=== PATIENT | female | born 1990 | race Caucasian/White ===

== ENCOUNTER 2017-02-14 16:36 | Emergency (ER) | payer BC, OTHER ==
[~2017-02-14] VITALS: Ht 167.6 cm; Wt 82.1 kg
[~2017-02-14 16:36] MED LIST: ONDA4TAB7 SL
[2017-02-14 16:45] VITALS: TEMP 36.9; Ht 167.6 cm; Wt 82.1 kg
[2017-02-14 17:13] LABS: MANUAL MICROSCOPIC REQUIRED? NO; REVIEW REQ? NO; URINE APPEARANCE CLOUDY (CLEAR); URINE BILIRUBIN NEG (NEG); URINE COLOR DK YELLOW; URINE EPITHELIAL CELL AUTO >30 /lpf (0-5); URINE NITRITE NEG (NEG); URINE PH 6.5 (4.5-7.5); URINE SPECIFIC GRAVITY 1.027 (1.000-1.030); UROBILINOGEN NEG (NEG); ZZUR CULT IF INDIC CLEAN CATCH YES
[2017-02-14 17:25] LABS: BASO % 0.5 %; BASO ABS # 0.03 K/uL (0-0.2); COMPLETE YES; EOS % 1.3 %; HEMATOCRIT 39.7 % (37-47); IG% 0.2 %; LYMPH % 31.6 %; LYMPH ABS # 1.95 K/uL (1.2-3.4); MEAN CELL VOLUME 92.8 fL (80-100); MEAN CORPUSCULAR HEMOGLOBIN 31.8 pg (25-34); MEAN CORPUSCULAR HGB CONC 34.3 g/dl (32-36); MEAN PLATELET VOLUME 11.2 fL (7.4-10.4); MONO % 7.1 %; NEUT % 59.3 %; PLATELET COUNT 267 K/uL (130-400); RED BLOOD COUNT 4.28 M/uL (4.2-5.4); WHITE BLOOD COUNT 6.18 K/uL (4.8-10.8)
[2017-02-14] MEDS ORDERED: CLR10 PO (17:31)
[2017-02-14] MEDS ORDERED: POLY335025 PO (17:34)
[2017-02-14 17:44] LABS: BUN/CREATININE RATIO 12.5 (10-20); CALCIUM 8.7 mg/dl (8.5-10.1); CREATININE 0.8 mg/dl (0.60-1.20); POTASSIUM 3.8 mmol/L (3.5-5.1)
--- NOTE | 2017-02-14 17:50 | DIAGNOSTIC IMAGING REPORT ---
ABDOMEN 2VIEW W/PA CHEST RTN CLINICAL HISTORY: no bmp x 12 days pain COMPARISON STUDY: No previous studies for comparison. FINDINGS: The soft tissues, psoas shadows, renal outlines and intestinal gas pattern appear normal. There is no evidence for bowel obstruction. There is no evidence for free intraperitoneal air. No abnormal abdominal calcifications are seen. A frontal view of the chest was performed and is unremarkable. Note is made of a mild fecal impaction. IMPRESSION: Mild fecal impaction. Otherwise negative chest and abdomen. Electronically signed by: Jason Jang M.D. 02/14/2017 5:49 PM Dictated Date/Time: 02/14/2017 5:48 PM
[2017-02-14 19:44] VITALS: BP 98/56; PULSE 74; O2SAT 98
[2017-02-14] MEDS ORDERED: GLYCERIN ADULT 1 EA SUPP PR ONE (19:45)
--- NOTE | 2017-02-14 22:14 | EMERGENCY ROOM VISIT NOTE ---
History Report prepared by Edgar: Oz Sauceda Under the Supervision of: Dr. Robert Angeles D.O. First contact with patient: 16:49 Chief Complaint: CONSTIPATION Stated Complaint: CONSTIPATION Nursing Triage Summary: "PCP told me to do a system cleans, I took 1 full bottle of miralx, and 2 stool softner pill" no BM History of Present Illness The patient is a 26 year old female who presents to the Emergency Room with complaints of constant lower abdominal pain beginning today. She states that she typically has chronic constipation, but has not defecated in 2.5 weeks. She states that she drank 1 full bottle of Miralax mixed with Gatorade this morning. The patient states that she drank it over a 30-60 minute period. She states that she developed her pain immediately following finishing the Miralax. She states that she was told to take the Miralax by her PCP. The patient has a history of two C-sections. She states that she typically defecates about twice a week. Pt denies headache, change in vision, fevers, chest pain, shortness of breath, nausea, vomiting, diarrhea, pain with urination, and melena. Source of History: patient Onset: Today Position: abdomen (lower) Timing: constant Associated Symptoms: No SOB, No chest pain, No chills, No diarrhea, No fevers, No headache, No urinary symptoms Note: The patient also complains of constipation. Review of Systems See HPI for pertinent positives & negatives. A total of 10 systems reviewed and were otherwise negative. Past Medical & Surgical Medical Problems: (1) No Known Active Medical Problems Family History Cancer Diabetes mellitus FH: heart disease Hypertension Social History Smoking Status: Current Every Day Smoker Alcohol Use: none Marital Status: Housing Status: lives with family Current/Historical Medications Scheduled Loratadine (Claritin), 10 MG PO DAILY Scheduled PRN Polyethylene Glycol 3350 (Miralax), 0.5 VIAL PO Q30M PRN for Constipation Allergies Coded Allergies: Amoxicillin (Verified Allergy, Unknown, Hives, 02/14/17) Physical Exam Vital Signs Date Time Temp Pulse Resp B/P Pulse Ox O2 Delivery O2 Flow Rate FiO2 02/14/17 19:44 74 16 98/56 98 02/14/17 18:34 86/63 108/72 02/14/17 18:02 71 16 98/58 100 Room Air 02/14/17 16:45 36.9 92 18 137/84 100 Room Air Physical Exam GENERAL: Sitting up in bed, alert, well appearing, well nourished, no distress, non-toxic EYE EXAM: normal conjunctiva OROPHARYNX: no exudate, no erythema, lips, buccal mucosa, and tongue normal and mucous membranes are moist NECK: supple, no nuchal rigidity, no adenopathy, non-tender LUNGS: Clear to auscultation. Normal chest wall mechanics HEART: no murmurs, S1 normal and S2 normal ABDOMEN: abdomen soft, non-tender, normo-active bowel sounds, no masses, no rebound or guarding. BACK: Back is symmetrical on inspection and there is no deformity, no midline tenderness, no CVA tenderness. SKIN: no rashes and no bruising UPPER EXTREMITIES: upper extremities are grossly normal. LOWER EXTREMITIES: No pitting edema. NEURO EXAM: Normal sensorium, cranial nerves II-XII grossly intact, normal speech, no gross weakness of arms, no gross weakness of legs. Medical Decision & Procedures ER Provider Diagnostic Interpretation: Radiology results as stated below per my review and the radiologist's interpretation: ABDOMEN 2VIEW W/PA CHEST RTN FINDINGS: The soft tissues, psoas shadows, renal outlines and intestinal gas pattern appear normal. There is no evidence for bowel obstruction. There is no evidence for free intraperitoneal air. No abnormal abdominal calcifications are seen. A frontal view of the chest was performed and is unremarkable. Note is made of a mild fecal impaction. IMPRESSION: Mild fecal impaction. Otherwise negative chest and abdomen. Electronically signed by: Jason Jang M.D. Laboratory Results 02/14/17 17:13 Red Blood Count 4.28, Mean Corpuscular Volume 92.8, Mean Corpuscular Hemoglobin 31.8, Mean Corpuscular Hemoglobin Concent 34.3, Mean Platelet Volume 11.2, Neutrophils (%) (Auto) 59.3, Lymphocytes (%) (Auto) 31.6, Monocytes (%) (Auto) 7.1, Eosinophils (%) (Auto) 1.3, Basophils (%) (Auto) 0.5, Neutrophils # (Auto) 3.67, Lymphocytes # (Auto) 1.95, Monocytes # (Auto) 0.44, Eosinophils # (Auto) 0.08, Basophils # (Auto) 0.03 02/14/17 17:13 Test 02/14/17 00:00 02/14/17 17:13 Urine Color DK YELLOW Urine Appearance CLOUDY (CLEAR) Urine pH 6.5 (4.5-7.5) Urine Specific [place] 1.027 (1.000-1.030) Urine Protein NEG (NEG) Urine Glucose (UA) NEG (NEG) Urine Ketones TRACE (NEG) Urine Occult Blood NEG (NEG) Urine Nitrite NEG (NEG) Urine Bilirubin NEG (NEG) Urine Urobilinogen NEG (NEG) Urine Leukocyte Esterase TRACE (NEG) Urine WBC (Auto) 1-5 /hpf (0-5) Urine RBC (Auto) 0-4 /hpf (0-4) Urine Hyaline Casts (Auto) 1-5 /lpf (0-5) Urine Epithelial Cells (Auto) >30 /lpf (0-5) Urine Bacteria (Auto) 1+ (NEG) Urine Test NEG (NEG) White Blood Count 6.18 K/uL (4.8-10.8) Red Blood Count 4.28 M/uL (4.2-5.4) Hemoglobin 13.6 g/dL (12.0-16.0) Hematocrit 39.7 % (37-47) Mean Corpuscular Volume 92.8 fL (80-100) Mean Corpuscular Hemoglobin 31.8 pg (25-34) Mean Corpuscular Hemoglobin Concent 34.3 g/dl (32-36) Platelet Count 267 K/uL (130-400) Mean Platelet Volume 11.2 fL (7.4-10.4) Neutrophils (%) (Auto) 59.3 % Lymphocytes (%) (Auto) 31.6 % Monocytes (%) (Auto) 7.1 % Eosinophils (%) (Auto) 1.3 % Basophils (%) (Auto) 0.5 % Neutrophils # (Auto) 3.67 K/uL (1.4-6.5) Lymphocytes # (Auto) 1.95 K/uL (1.2-3.4) Monocytes # (Auto) 0.44 K/uL (0.11-0.59) Eosinophils # (Auto) 0.08 K/uL (0-0.5) Basophils # (Auto) 0.03 K/uL (0-0.2) RDW Standard Deviation 43.4 fL (36.4-46.3) RDW Coefficient of Variation 12.8 % (11.5-14.5) Immature Granulocyte % (Auto) 0.2 % Immature Granulocyte # (Auto) 0.01 K/uL (0.00-0.02) Anion Gap 6.0 mmol/L (3-11) Est Creatinine Clear Calc Drug Dose 115.1 ml/min Estimated GFR () 117.9 Estimated GFR (Non- 101.8 BUN/Creatinine Ratio 12.5 (10-20) Calcium Level 8.7 mg/dl (8.5-10.1) Total Bilirubin 0.7 mg/dl (0.2-1) Direct Bilirubin 0.1 mg/dl (0-0.2) Aspartate Amino Transf (AST/SGOT) 13 U/L (15-37) Alanine Aminotransferase (ALT/SGPT) 23 U/L (12-78) Alkaline Phosphatase 61 U/L (45-117) Total Protein 7.5 gm/dl (6.4-8.2) Albumin 3.7 gm/dl (3.4-5.0) Lipase 92 U/L (73-393) Laboratory results per my review. ED Course ED COURSE: Vital signs were reviewed and appeared normal The patients medical record was reviewed The above diagnostic studies were performed and reviewed. ED treatments and interventions as stated above. 1657: The patient was evaluated in room C8. A complete history and physical examination was performed. 5: I updated the patient on her test results. She does not feel that a CT is necessary. 5: Ordered Glycerin Adult Supp ID. [id number]:: Upon reevaluation, the patient is resting comfortably. I discussed my findings with the patient and she understands and agrees with the treatment plan. Based on the patients age, coexisting illnesses, exam and lab findings the decision to treat as an outpatient was made. The patient remained stable while under my care. The patient appeared well at the time of discharge. Medical Decision Differential diagnoses includes but is not limited to gastritis, peptic ulcer disease, GERD, gallbladder disease, pancreatitis, small bowel obstruction, acute coronary syndrome, pericarditis, ischemic bowel, irritable bowel disease, irritable bowel syndrome, appendicitis, diverticulitis, malignancy, hernia, urinary tract infection, torsion, /ectopic , perforation, trauma, infectious. Patient is a 26 her old female who presents the ER for lower abdominal cramping. She notes that she has not had a bowel movement in the past 12 days and consequently went to her PCP. She gave her a MiraLAX prep which she took and has not had a bowel movement. Following taking this she has had cramping abdominal pain. Prior to that she had no pain. No previous belly surgeries. No vaginal bleeding or vaginal discharge. Abdominal exam is benign. Labs show unremarkable CBC, BMP, LFTs and lipase. UA is unremarkable. is negative. Patient was given fluids and Toradol. X-ray shows no obstruction. With her benign exam and symptoms starting after taking the MiraLAX I do feel this consistent and likely not related to any acute surgical problem. Discussed with Pt concerning signs and symptoms to watch out for. Pt was instructed to follow up with their PCP and discussed with the patient their option to return to the ED at anytime for persistent or worsening symptoms. The appropriate anticipatory guidance and out-patient management, including indications for return to the emergency department, were explained at length to the patient and understood. Impression Primary Impression: Constipation Additional Impression: Abdominal pain Scribe Attestation The scribe's documentation has been prepared under my direction and personally reviewed by me in its entirety. I confirm that the note above accurately reflects all work, treatment, procedures, and medical decision making performed by me. Departure Information Dispostion Home / Self-Care Referrals No Doctor, Assigned (PCP) Forms HOME CARE DOCUMENTATION FORM, IMPORTANT VISIT INFORMATION Patient Instructions Abdominal Pain - [facility], Constipation, [facility] Additional Instructions Please follow up with your primary care doctor with in the next 24 hours. Any worsening of your symptoms, please return to the ED immediately. This includes fevers greater than 100.4, localization of pain in the right lower quadrant, vaginal bleeding or vaginal discharge or any other concerning signs or symptoms from your standpoint. Please take 250 g of MiraLAX mixed with 64 ounces Gatorade. Drink 8-10 ounces every half hour or until you have a bowel movement. If you have no success you can try the supository. Problem Qualifiers Primary Impression: Constipation Constipation type: unspecified constipation type Qualified Codes: K59.00 - Constipation, unspecified Additional Impression: Abdominal pain Abdominal location: unspecified location Qualified Codes: R10.9 - Unspecified abdominal pain
== END 2017-02-14 19:45 | disposition home or self-care (01) ==
LOC: C.EDB 16:38 → C.EDC 19:45
DX: K59.00 Constipation, unspecified (principal); R10.30 Lower abdominal pain, unspecified; F17.200 Nicotine dependence, unspecified, uncomplicated; Z88.1 Allergy status to other antibiotic agents; Z80.9 Family history of malignant neoplasm, unspecified; Z83.3 Family history of diabetes mellitus; Z82.49 Family history of ischemic heart disease and other diseases of the circulatory system

== ENCOUNTER 2018-01-07 20:07 | Emergency (ER) | payer BC ==
[~2018-01-07] VITALS: Ht 167.6 cm; Wt 85.4 kg
[~2018-01-07 20:07] MED LIST changes: +CLR10 PO; -ONDA4TAB7 SL; +POLY335025 PO
[2018-01-07 20:10] VITALS: TEMP 36.9; Ht 167.6 cm; Wt 85.4 kg
[2018-01-07] MEDS ORDERED: ONDANSETRON INJ 2 MG/ML 2 ML VIAL IV STA (20:37)
[2018-01-07] MEDS ORDERED: SODIUM CHLORIDE 0.9% 1000ML 1,000 ML IV STA (20:37)
[2018-01-07] MEDS ORDERED: KETOROLAC TROMETHAMINE 30 MG/ML VIAL IV STA (20:37)
[2018-01-07 20:45] LABS: BASO % 0.2 %; BASO ABS # 0.02 K/uL (0-0.2); EOS % 2.1 %; EOS ABS # 0.21 K/uL (0-0.5); HEMATOCRIT 42.6 % (37-47); IG# 0.04 K/uL (0.00-0.02); LYMPH ABS # 1.64 K/uL (1.2-3.4); MEAN CELL VOLUME 90.6 fL (80-100); MEAN CORPUSCULAR HEMOGLOBIN 31.9 pg (25-34); MEAN CORPUSCULAR HGB CONC 35.2 g/dl (32-36); MEAN PLATELET VOLUME 10.6 fL (7.4-10.4); MONO % 5.6 %; MONO ABS # 0.57 K/uL (0.11-0.59); NEUT % 75.7 %; NEUT ABS # 7.75 K/uL (1.4-6.5); PLATELET COUNT 248 K/uL (130-400); RED CELL DISTRIBUTION WIDTH CV 12.6 % (11.5-14.5); RED CELL DISTRIBUTION WIDTH SD 41.8 fL (36.4-46.3); WHITE BLOOD COUNT 10.23 K/uL (4.8-10.8)
--- NOTE | 2018-01-07 20:49 | EMERGENCY ROOM VISIT NOTE ---
History Report prepared by Blanca[place]shelton: Leo Estrada Under the Supervision of: Dr. Shruthi Pablo M.D. First contact with patient: 20:15 Chief Complaint: ABDOMINAL PAIN Stated Complaint: SEVERE PAIN IN L SIDE,NAUSEA,HEADACHE, CAN'T EAT Nursing Triage Summary: LLQ abdominal pain today with nausea but no vomiting. History of Present Illness The patient is a 27 year old female who presents to the Emergency Room with complaints of worsening left upper abdominal pain that began at 0630. She rates her pain as an 8/10 in severity. She states her pain radiates into her lower abdomen intermittently. The patient states she has also been experiencing intermittent nausea and migraines throughout the day as well. She reports she took Tylenol for her pain without any relief. She denies vaginal bleeding, blood in stool, vomiting, vaginal discharge, similar symptoms in the past, and fevers. The patient states her next menstrual period is in two weeks. Source of History: patient Onset: 0630 Position: abdomen (LUQ) Symptom Intensity: 8/10 Timing: worsening Modifying Factors (Relieving): tylenol Associated Symptoms: + headache, + nausea, No fevers, No vomiting, No urinary symptoms Note: Denies vaginal bleeding or discharge Review of Systems See HPI for pertinent positives & negatives. A total of 10 systems reviewed and were otherwise negative. Past Medical & Surgical Medical Problems: (1) No Known Active Medical Problems Family History Cancer Diabetes mellitus FH: heart disease Hypertension Social History Smoking Status: Current Every Day Smoker Alcohol Use: none Marital Status: Housing Status: lives with family Current/Historical Medications Scheduled Amlodipine Besylate (Norvasc), 2.5 MG PO DAILY Loratadine (Claritin), 10 MG PO DAILY Scheduled PRN Acetaminophen (Tylenol), 1,000 MG PO Q6 PRN for Headache or Pain Allergies Coded Allergies: Amoxicillin (Verified Allergy, Unknown, Hives, 02/14/17) Physical Exam Vital Signs Date Time Temp Pulse Resp B/P (MAP) Pulse Ox O2 Delivery O2 Flow Rate FiO2 01/07/18 21:56 68 13 97/58 97 Room Air 01/07/18 20:59 90 01/07/18 20:10 36.9 100 18 110/70 98 Room Air Physical Exam Vital signs reviewed. General: Well-appearing 27 year old female, in no significant distress. HEENT: No scleral icterus, PERRLA, neck supple. Atraumatic. Cardiovascular: Regular rate and rhythm, no extra sounds. Pulmonary: Clear to auscultation bilaterally, normal work of breathing. Abdomen: Soft, minimal left upper quadrant pain, nondistended, positive bowel sounds. Musculoskeletal: Atraumatic, no peripheral edema. No CVA tenderness. Neurologic: Patient awake alert and oriented x 3 Skin: Warm, dry, no rash Medical Decision & Procedures ER Provider Diagnostic Interpretation: X-ray results as stated below per interpretation by me and the radiologist: CHEST AND ABDOMEN 2 VIEWS HISTORY: Left upper quadrant abdominal pain. COMPARISON: Chest and abdominal series 02/14/2017. FINDINGS: The lungs are clear. The cardiomediastinal silhouette is within normal limits. There is no pneumoperitoneum or pneumatosis. The bowel gas pattern is unremarkable. No evidence for bowel obstruction. No pathologic calcifications. Moderate well-formed stool seen throughout the colon. IMPRESSION: No acute cardiopulmonary process. No evidence for bowel obstruction. Moderate well-formed stool seen throughout the colon consistent with constipation. Electronically signed by: Mack Edwards M.D. 01/07/2018 9:36 PM Dictated Date/Time: 01/07/2018 9:31 PM Laboratory Results 01/07/18 20:23 Red Blood Count 4.70, Mean Corpuscular Volume 90.6, Mean Corpuscular Hemoglobin 31.9, Mean Corpuscular Hemoglobin Concent 35.2, Mean Platelet Volume 10.6, Neutrophils (%) (Auto) 75.7, Lymphocytes (%) (Auto) 16.0, Monocytes (%) (Auto) 5.6, Eosinophils (%) (Auto) 2.1, Basophils (%) (Auto) 0.2, Neutrophils # (Auto) 7.75, Lymphocytes # (Auto) 1.64, Monocytes # (Auto) 0.57, Eosinophils # (Auto) 0.21, Basophils # (Auto) 0.02 01/07/18 20:23 Test 01/07/18 20:23 01/07/18 20:28 White Blood Count 10.23 K/uL (4.8-10.8) Red Blood Count 4.70 M/uL (4.2-5.4) Hemoglobin 15.0 g/dL (12.0-16.0) Hematocrit 42.6 % (37-47) Mean Corpuscular Volume 90.6 fL (80-100) Mean Corpuscular Hemoglobin 31.9 pg (25-34) Mean Corpuscular Hemoglobin Concent 35.2 g/dl (32-36) Platelet Count 248 K/uL (130-400) Mean Platelet Volume 10.6 fL (7.4-10.4) Neutrophils (%) (Auto) 75.7 % Lymphocytes (%) (Auto) 16.0 % Monocytes (%) (Auto) 5.6 % Eosinophils (%) (Auto) 2.1 % Basophils (%) (Auto) 0.2 % Neutrophils # (Auto) 7.75 K/uL (1.4-6.5) Lymphocytes # (Auto) 1.64 K/uL (1.2-3.4) Monocytes # (Auto) 0.57 K/uL (0.11-0.59) Eosinophils # (Auto) 0.21 K/uL (0-0.5) Basophils # (Auto) 0.02 K/uL (0-0.2) RDW Standard Deviation 41.8 fL (36.4-46.3) RDW Coefficient of Variation 12.6 % (11.5-14.5) Immature Granulocyte % (Auto) 0.4 % Immature Granulocyte # (Auto) 0.04 K/uL (0.00-0.02) Anion Gap 4.0 mmol/L (3-11) Est Creatinine Clear Calc Drug Dose 106.9 ml/min Estimated GFR () 105.8 Estimated GFR (Non- 91.3 BUN/Creatinine Ratio 16.0 (10-20) Calcium Level 8.5 mg/dl (8.5-10.1) Total Bilirubin 0.7 mg/dl (0.2-1) Direct Bilirubin 0.1 mg/dl (0-0.2) Aspartate Amino Transf (AST/SGOT) 12 U/L (15-37) Alanine Aminotransferase (ALT/SGPT) 21 U/L (12-78) Alkaline Phosphatase 69 U/L (45-117) Total Protein 8.0 gm/dl (6.4-8.2) Albumin 3.7 gm/dl (3.4-5.0) Urine Color DK YELLOW Urine Appearance CLOUDY (CLEAR) Urine pH 5.0 (4.5-7.5) Urine Specific [place] 1.036 (1.000-1.030) Urine Protein TRACE (NEG) Urine Glucose (UA) NEG (NEG) Urine Ketones NEG (NEG) Urine Occult Blood NEG (NEG) Urine Nitrite NEG (NEG) Urine Bilirubin NEG (NEG) Urine Urobilinogen NEG (NEG) Urine Leukocyte Esterase TRACE (NEG) Urine WBC (Auto) 5-10 /hpf (0-5) Urine RBC (Auto) 0-4 /hpf (0-4) Urine Hyaline Casts (Auto) 1-5 /lpf (0-5) Urine Epithelial Cells (Auto) >30 /lpf (0-5) Urine Bacteria (Auto) NEG (NEG) Urine Test NEG (NEG) Medications Administered Medications (Trade) Dose Ordered Sig/Chavo Route Start Time Stop Time Status Last Admin Dose Admin Sodium Chloride 1,000 ml @ 999 mls/hr Q1H1M STAT IV 01/07/18 20:37 01/07/18 21:37 DC 01/07/18 20:37 999 MLS/HR Ondansetron HCl (Zofran Inj) 4 mg NOW STAT IV 01/07/18 20:37 01/07/18 20:38 DC 01/07/18 20:48 4 MG Ketorolac Tromethamine (Toradol Inj) 30 mg NOW STAT IV 01/07/18 20:37 01/07/18 20:38 DC 01/07/18 20:49 30 MG ED Course 2032: Past medical records reviewed. The patient was evaluated in room C01B. A complete history and physical examination was performed. 2036: Ordered Toradol Injection 30 mg IV, Zofran Injection 4 mg IV, Sodium Chloride 1000 ml @ 999 mls/hr IV. 1999: I reevaluated the patient and I discussed findings with her. The patient verbalized agreement of the treatment plan. She was discharged home. Medical Decision Differential diagnosis: Etiologies such as appendicitis, diverticulitis, PUD, biliary pathology, UTI, pancreatitis, obstruction, mesenteric ischemia, aortic pathology, infections, inflammatory bowel disease, renal colic, as well as others were entertained. This pt was evaluated and appeared to be in no distress. PE reveals no peritoneal signs. IVF were initiated and pt was medicated with IV toradol. Abd XR series is c/w fecal retention. UA is negative, preg is negative. Pt was reevaluated and feeling improved. She was asked to use miralax as needed for BM. She will increase the fiber and water in the diet. Pt was d/c to f/u with her PCP this week. She will return to the ED for worsening of symptoms or any medical concerns. Medication Reconcilliation Current Medication List: was personally reviewed by me Blood Pressure Screening Patient's blood pressure: Normal blood pressure Impression Primary Impression: Constipation Scribe Attestation The scribe's documentation has been prepared under my direction and personally reviewed by me in its entirety. I confirm that the note above accurately reflects all work, treatment, procedures, and medical decision making performed by me. Departure Information Dispostion Home / Self-Care Referrals Bianca Lutz PA-C (PCP) Forms HOME CARE DOCUMENTATION FORM, IMPORTANT VISIT INFORMATION Patient Instructions [facility] Additional Instructions Diagnosis: Constipation MiraLAX 1 capful daily as needed for a bowel movement. Increase the fiber in your diet. Drink plenty of clear fluids. Follow-up with your physician this week for reevaluation if symptoms persist. Return to the ER for worsening of symptoms or any medical concerns.
[2018-01-07 20:55] LABS: ALBUMIN 3.7 gm/dl (3.4-5.0); CALCIUM 8.5 mg/dl (8.5-10.1); CREATININE 0.87 mg/dl (0.60-1.20); POTASSIUM 3.7 mmol/L (3.5-5.1)
--- NOTE | 2018-01-07 21:37 | DIAGNOSTIC IMAGING REPORT ---
CHEST AND ABDOMEN 2 VIEWS HISTORY: Left upper quadrant abdominal pain. COMPARISON: Chest and abdominal series 02/14/2017. FINDINGS: The lungs are clear. The cardiomediastinal silhouette is within normal limits. There is no pneumoperitoneum or pneumatosis. The bowel gas pattern is unremarkable. No evidence for bowel obstruction. No pathologic calcifications. Moderate well-formed stool seen throughout the colon. IMPRESSION: No acute cardiopulmonary process. No evidence for bowel obstruction. Moderate well-formed stool seen throughout the colon consistent with constipation. Electronically signed by: Mack Edwards M.D. 01/07/2018 9:36 PM Dictated Date/Time: 01/07/2018 9:31 PM
[2018-01-07] MEDS ORDERED: ACET-1256 PO (21:53)
[2018-01-07] MEDS ORDERED: AMLO2.5T PO (21:53)
[2018-01-07 21:56] VITALS: BP 97/58; PULSE 68; O2SAT 97
== END 2018-01-07 22:24 | disposition home or self-care (01) ==
LOC: C.EDB 20:08 → C.EDC 22:24
DX: K59.00 Constipation, unspecified (principal); G43.909 Migraine, unspecified, not intractable, without status migrainosus; F17.200 Nicotine dependence, unspecified, uncomplicated; Z88.0 Allergy status to penicillin; Z83.3 Family history of diabetes mellitus; Z82.49 Family history of ischemic heart disease and other diseases of the circulatory system